=== PATIENT | female | born 1990 | race Caucasian/White ===

== ENCOUNTER 2020-10-28 19:53 | Inpatient (IN) | payer OTHER, SELFPAY ==
[2020-10-28] VITALS (16 sets, daily range): BP systolic 100–131; BP diastolic 54–73; PULSE 65–90; TEMP 36.6
--- OUTSIDE RECORDS SUMMARY | 2020-10-28 19:59 | XMS_ITS | Encounter Summary ---
:1990 Author Reason for Visit return OB visit Assessment and Plan None recorded.Discussion Note: None recorded.Patient educational handouts: No information available. Plan of Care Reminders Provider Appointments None ? ? recorded. Lab None ? ? recorded. Referral None ? ? recorded. Procedures None ? ? recorded. Surgeries None ? ? recorded. Imaging None ? ? recorded. Medications Name Start Date ? ? 28 mg iron-800 mcg tablet ? TAKE ONE TABLET BY MOUTH EVERY DAY 28 mg-800 mcg tablet ? Take 1 tablet every day by oral route. Notes: PNV Medications Administered None recorded. Vitals Height Weight Blood Pressure 5 ft 3 in 211 lbs 130/80 mm[Hg] Results Lab Results None recorded. Allergies Code Code System Name Reaction Severity Onset NKDA ? ? ? Problems Name Status Onset Date Source ? Active 04/05/2020 History Suppression of Menstruation Active ? Hist ory Dysuria Active ? History Procedures Date Name Performed by ?
--- OUTSIDE RECORDS SUMMARY | 2020-10-28 19:59 | XMS_ITS | Encounter Summary ---
:1990 Author Reason for Visit return OB visit Assessment and Plan 1. Routine care Discussion Note: None recorded.Patient educational handouts: No information [...] Weight Blood Pressure 5 ft 3 in 213 lbs 124/76 mm[Hg] Results Lab Results None recorded. Allergies Code Code System Name Reaction Severity Onset NKDA ? ? ? Problems Name Status Onset Date Source ? Active 04/05/2020 History Suppression of Menstruation Active ? Hist ory Dysuria Active ? History Procedures None recorded. Vaccine List Notes: omar
--- OUTSIDE RECORDS SUMMARY | 2020-10-28 19:59 | XMS_ITS | Encounter Summary ---
:1990 Author Reason for Visit return OB visit Assessment and Plan 1. Routine care ? induction of labor (PROC) Discussion Note: None recorded.Patient educational handouts: No information available. Plan of Care Reminders Provider Appointments None ? ? recorded. Lab None ? ? recorded. Referral None ? ? recorded. Procedures Induction of [facility] Labor (PROC) 10/28/2020 (Admitting) Surgeries None ? ? recorded. Imaging None ? ? recorded. Medications Name Start Date ? ? 28 mg iron-800 mcg tablet ? TAKE ONE TABLET BY MOUTH EVERY DAY 28 mg-800 mcg tablet ? Take 1 tablet every day by oral route. Notes: PNV Medications Administered None recorded. Vitals Height Weight Blood Pressure 5 ft 3 in 212 lbs 122/76 mm[Hg] Results Lab Results None recorded. Allergies Code Code System Name Reaction Severity Onset NKDA ? ? ? Problems Name Status Onset Date Source ? Active 04/05/2020 History Suppression of Menstruation Active ? Hist ory
--- OUTSIDE RECORDS SUMMARY | 2020-10-28 19:59 | XMS_ITS ---
:1990 Author Care Team Providers Name Role Phone [facility] Primary Care Provider Unavailable Allergies Code Code System Name Reaction Severity Status Onset NKDA ? Medications Name Status Start Date Stop Date ? ? Boostrix Tdap 2.5 Lf unit-8 mcg-5 Lf/0.5 mL intramuscular syring e Completed ? 01/02/2017 ADM 0.5ML IM UTD Estarylla 0.25 mg-35 mcg tablet Completed ? 04/05/2020 hydrocodone 5 mg-acetaminophen 325 mg Completed ? 01/02/2017 tablet ID NOW COVID-19 Test Kit Completed ? 021 TEST DIRECTED nitrofurantoin monohydrate/macrocrystals 100 mg capsule Unknown ? Not available TAKE 1 CAPSULE(S) TWICE A DAY BY ORAL ROUTE FOR 5 DAYS. oseltamivir 75 mg capsule Completed ? 2016 TAKE ONE CAPSULE BY MOUTH TWICE A DAY FOR 5 DAYS Prenatabs FA 29 mg-1 mg tablet Completed ? 0 10/30/2016 Prenatabs Rx 29 mg iron-1 mg tablet Completed ? 01/02/2017 Take 1 tablet every day by oral route. 28 mg iron-800 mcg tablet Active ? Not available TAKE ONE TABLET BY MOUTH EVERY DAY 28 mg-800 mcg tablet Active ? No t available Take 1 tablet every day by oral route. Se-Pricilla 19 (with docusate) 29 mg Completed ? 10/30/2016 iron-1 mg-25 mg tablet Notes: PNV Problems Name Status Onset Date Source ? Active 04/05/2020 History Suppression of Menstruation Active ? Hist ory Dysuria Active ?
--- OUTSIDE RECORDS SUMMARY | 2020-10-28 20:00 | XMS_ITS ---
:1990 Author Care Team Providers Name Role Phone [facility] Primary Care Provider Unavailable Allergies Code [...] 01/02/2017 tablet ID NOW COVID-19 Test Kit Active ? Not saranya ilable TEST DIRECTED nitrofurantoin monohydrate/macrocrystals 100 mg capsule [...] iron-800 mcg tablet Active ? Not available TK 1 T PO QD 28 mg-800 mcg tablet Active ? No t available Take 1 tablet every day by oral route. Se-Pricilla 19 (with docusate) 29 mg Completed ? 10/30/2016 iron-1 mg-25 mg tablet Notes: PNV Problems Name Status Onset Date Source ? Active 04/05/2020 ? Suppression of Menstruation Active ? Enco unter Dysuria Active ? Encounter
--- OUTSIDE RECORDS SUMMARY | 2020-10-28 20:00 | XMS_ITS | Encounter Summary ---
[...] recorded. Medications Name Start Date ? ? ID NOW COVID-19 Test Kit ? TEST DIRECTED 28 mg iron-800 mcg tablet ? TK 1 T PO QD 28 mg-800 mcg tablet ? Take 1 tablet every day by oral route. Notes: PNV Medications Administered None recorded. Vitals Height Weight Blood Pressure 5 ft 3 in 198 lbs 124/76 mm[Hg] Results Lab Results None recorded. Allergies Code Code System Name Reaction Severity Onset NKDA ? ? ? Problems Name Status Onset Date Source ? Active 04/05/2020 ? Suppression of Menstruation Active ? Enco unter Dysuria Active ? Encounter Procedure
--- OUTSIDE RECORDS SUMMARY | 2020-10-28 20:00 | XMS_ITS | Encounter Summary ---
:1990 Author Reason for Visit OB Ultrasound Assessment and Plan None recorded.Discussion Note: None [...] Notes: PNV Medications Administered None recorded. Vitals None recorded. Results Lab Results None recorded. Allergies Code Code System Name Reaction Severity Onset NKDA ? ? ? Problems Name Status Onset Date Source ? Active 04/05/2020 History Suppression of Menstruation Active ? Hist ory Dysuria Active ? History Procedures Date Name Performed by ? 09/15/2020 US, Obstetric, 2Nd or 3Rd Trimester [facility] (Imaging)
--- OUTSIDE RECORDS SUMMARY | 2020-10-28 20:00 | XMS_ITS | Encounter Summary ---
:1990 Author Reason for Visit return OB visit Assessment and Plan 1. Routine care 2. Malpresentation of fetus ? US, obstetric, 2nd or 3rd trimester - growth/check position Discussion Note: None recorded.Patient educational handouts: No information available. Plan of Care Reminders Provider Appointments None ? ? recorded. Lab None ? ? recorded. Referral None ? ? recorded. Procedures None ? ? recorded. Surgeries None ? ? recorded. Imaging US, [facility], 2Nd or 3Rd 09/15/2020 [facility] Tr[facility] (Imaging) Medications Name Start Date ? ? 28 mg iron-800 mcg tablet ? TAKE ONE TABLET BY MOUTH EVERY DAY 28 mg-800 mcg tablet ? Take 1 tablet every day by oral route. Notes: PNV Medications Administered None recorded. Vitals Height Weight BMI Blood Pressure 5 ft 3 in 201.5 lbs 35.7 kg/m2 108/70 mm[Hg] Results Lab Results None recorded. Allergies Code Code System Name Reaction Severity Onset NKDA ? ? ? Problems Name Status Onset Date Source ?
--- OUTSIDE RECORDS SUMMARY | 2020-10-28 20:00 | XMS_ITS | Encounter Summary ---
:1990 Author Reason for Visit return OB visit Assessment and Plan 1. Routine care ? 28 mg iron-800 mc g tablet Discussion Note: None recorded.Patient educational handouts: No [...] Weight Blood Pressure 5 ft 3 in 204 lbs 110/68 mm[Hg] Results Lab Results None recorded. Allergies Code Code System Name Reaction Severity Onset NKDA ? ? ? Problems Name Status Onset Date Source ? Active 04/05/2020 History Suppression of Menstruation Active ? Hist ory Dysuria Active ? History Procedures
--- OUTSIDE RECORDS SUMMARY | 2020-10-28 20:00 | XMS_ITS | Encounter Summary ---
:1990 Author Reason for Visit return OB visit Assessment and Plan 1. Routine care ? streptococcus group B, cul ture, unspecified specimen Discussion Note: None recorded.Patient educational handouts: No information available. Plan of Care Reminders Provider Appointments None recorded. ? ? Lab Streptococcus Gat [facility] Group B, Culture, 10/05/2020 Hospital (Lab) Unspecified Specimen Referral None recorded. ? ? Procedures None recorded. ? ? Surgeries None recorded. ? ? Imaging None recorded. ? ? Medications Name Start Date ? ? 28 mg iron-800 mcg tablet ? TAKE ONE TABLET BY MOUTH EVERY DAY 28 mg-800 mcg tablet ? Take 1 tablet every day by oral route. Notes: PNV Medications Administered None recorded. Vitals Height Weight Blood Pressure 5 ft 3 in 206 lbs 118/72 mm[Hg] Results Lab Results Date Name Specimen Result Interpretation Description Value Range Status Address ? 10/05/2020 Streptococcus ? Strep Gp negative negative Final [facility]: Group B, B [facility] [id number] Culture, Anthony givens, Unspecified Yohan
--- NOTE | 2020-10-28 20:29 | LDADM ---
This patient, Ana Maria Chappell, was admitted to Labor/Delivery/Recovery 105 on 10/28/20 at 19:53. Plans for labor, pain management and were discussed with patient. Patient/family oriented to hospital policies and general routines including ID bracelet, bed and alarms, visiting hours, pain management, procedures, bathroom and other care routines, personal items, smoking policy, room service/diet and guest tray routines, security routines, and visiting hours. Patient/Family are encouraged to report perceived risks to care and to ask questions if they do not understand what they are told or what they should do. See OBIX for further documentation.
[2020-10-28] MEDS: LACTATED RINGERS 1,000 ML 125 ML IV CONT (20:52)
[2020-10-28 21:00] LABS: Basophils Percent Auto 0.2 % (0.2-1.2); Eosinophils Absolute Auto 0.2 K/mm3 (0-0.3); Eosinophils Percent Auto 1.1 % (0-4.4); Hematocrit 35.3 % (37.0-47.0); Hemoglobin 12.2 g/dL (12.0-15.0); Immature Granulocyte Percent A 0.8 % (0-0.5); Lymphocytes Absolute Auto 1.61 K/mm3 (0.9-3.2); Lymphocytes Percent Auto 12.1 % (18.3-44.2); Mean Corpuscular HGB Conc 34.6 g/dl (32-36); Mean Corpuscular Hemoglobin 32.9 pg (26-34); Mean Corpuscular Volume 95.1 fl (80-100); Mean Platelet Volume 11.5 fl (7.4-10.4); Monocytes Absolute Auto 1.1 K/mm3 (0.1-0.6); Monocytes Percent Auto 8.3 % (2.6-8.5); Neutrophils Absolute Auto 10.3 K/mm3 (1.3-6.7); Neutrophils Percent Auto 77.5 % (45.5-73.1); Platelet Count Result 146 k/mm3 (150-375); Red Blood Count 3.71 M/mm3 (4.2-5.4); White Blood Count 13.3 K/mm3 (4.5-10.0)
[2020-10-28 21:50] LABS: HIV 1/2 Ab P24 Ag Result Negative (Negative)
[2020-10-28] MEDS: OXYTOCIN 30 UNITS/NS 500 ML 30 UNITS/500 ML BAG IV CONT (21:54)
[2020-10-29] VITALS (186 sets, daily range): BP systolic 57–139; BP diastolic 32–121; PULSE 25–159; RESP 18; TEMP 36.1–37.1; O2SAT 83–100
--- NOTE | 2020-10-29 07:08 | WPDANESEPP ---
Anes - Eval Pre Procedure Procedure: labor epidural Date/Time: 10/29/20 07:08 Preop Diagnosis: labor pain Pre Op Diagnosis: IOL Patient Data Age: 30 Gender: F Height: Weight: Last Vital Signs Temp 36.5 C 10/29/20 00:11 Pulse 72 10/29/20 07:01 BP 115/74 10/29/20 07:01 Pulse Ox 88 L 10/29/20 07:07 Allergies Allergy/AdvReac Type Severity Reaction Status Date / Time No Known Allergies Allergy Verified 10/15/20 15:38 Home Medications Medication Instructions Recorded Confirmed Type prenat.vits,fran,ejf-mdnu-fsuvv 1 tablet PO HS 10/15/20 10/15/20 History [ #2] Laboratory Tests 10/28/20 10/28/20 10/28/20 20:53 20:53 20:53 WBC 13.3 K/mm3 H K/mm3 (4.5-10.0) RBC 3.71 M/mm3 L M/mm3 (4.2-5.4) Hgb 12.2 g/dL g/dL (12.0-15.0) Hct 35.3 % L % (37.0-47.0) MCV 95.1 fl fl (80-100) MCH 32.9 pg pg (26-34) MCHC 34.6 g/dl g/dl (32-36) RDW 13.0 % % (11.5-14.5) Plt Count 146 k/mm3 L k/mm3 (150-375) MPV 11.5 fl H fl (7.4-10.4) Immature Gran % (Auto) 0.8 % H % (0-0.5) Neut % (Auto) 77.5 % H % (45.5-73.1) Lymph % (Auto) 12.1 % L % (18.3-44.2) Edmunds % (Auto) 8.3 % % (2.6-8.5) Eos % (Auto) 1.1 % % (0-4.4) Baso % (Auto) 0.2 % % (0.2-1.2) Lymph # (Auto) 1.61 K/mm3 K/mm3 (0.9-3.2) Edmunds # (Auto) 1.1 K/mm3 H K/mm3 (0.1-0.6) Eos # (Auto) 0.2 K/mm3 K/mm3 (0-0.3) Baso # (Auto) 0.0 K/mm3 K/mm3 (0.0-0.1) Abs Immat Gran (auto) 0.10 K/mm3 H K/mm3 (0.00-0.031) Absolute Neuts (auto) 10.3 K/mm3 H K/mm3 (1.3-6.7) Absolute Nucleated RBC 0.0 K/mm3 K/mm3 (0.0-0.012) Nucleated RBC % 0.0 % % (0.0-0.2) RPR Pending HIV 1&2 Ab/P24 Ag 4thGn Negative (Negative) Blood Type Antibody Screen 10/28/20 20:53 WBC RBC Hgb Hct MCV MCH MCHC RDW Plt Count MPV Immature Gran % (Auto) Neut % (Auto) Lymph % (Auto) Edmunds % (Auto) Eos % (Auto) Baso % (Auto) Lymph # (Auto) Edmunds # (Auto) Eos # (Auto) Baso # (Auto) Abs Immat Gran (auto) Absolute Neuts (auto) Absolute Nucleated RBC Nucleated RBC % RPR HIV 1&2 Ab/P24 Ag 4thGn Blood Type A Positive Antibody Screen Negative Patient hx anesthesia problems: none Family hx anesthesia problems: none [facility] Family History Family History (Updated 10/15/20 @ 15:40 by Lima Goddard RN) Father Hypertension Mother Crohn disease Grandparent Diabetes mellitus Social History Social History Smoking status: Never smoker Second hand tobacco smoke exposure: No Substance use: never Spiritual care concerns: No Exam Day of Procedure 10/29/20 07:08
[2020-10-29] MEDS: LACTATED RINGERS 1,000 ML 125 ML IV CONT ×2 (07:30→07:57)
[2020-10-29] MEDS: fentaNYL CITRATE INJ (*CRX) 100 MCG/2 ML VIAL 50 MCG IV PUSH (09:35)
--- NOTE | 2020-10-29 13:29 | WPDHPUPDATE1 ---
History and Physical Update Update Date/Time: 10/29/20 13:29 History and Physical has been reviewed, including an updated exam of the patient. There are NO changes in the patient's condition. Risks, benefits, and alternatives have been discussed and questions answered. Patient agrees to proceed with procedure.
--- NOTE | 2020-10-29 13:29 | WPDOBADMIT ---
Obstetrics - Admit Note Admission Note: record reviewed. No pertinent additions to the history and/or any subsequent changes in the physical findings that are not consistent with the expected course of the were found. Additions to the history and/or subsequent changes in the physical findings follow. None.
--- NOTE | 2020-10-29 13:29 | PM.OBPRVD ---
OB - Delivery Note Procedure Route of delivery: Episiotomy description: None Laceration Description: Vaginal - 1st Degree Delivery repair: chromic Specimen: No Quantitative Blood Loss (ml): 200 Anesthesia type: Epidural Disposition: floor Narrative: Patient prepped and draped in usual manner for this procedure. Maternal expulsive efforts readily delivered vertex over intact perineum with nuchal cord noted. Rest of baby was delivered without difficulty cord was clamped and cut and the placenta delivered spontaneously. 1cm vaginal laceration was noted which was bleeding and therefore [id number] suture of 2 0 chromic was placed to render this hemostatic. Uterus was well contracted and there was minimal bleeding from the uterus. At this point seizure was considered terminated patient are procedure well immediate postop condition mother baby were both excellent. Stacy Baby Weeks of gestation at delivery: 39 gender: Female Weight (pounds): 7 Weight (ounces): 1 score one minute: 9 score five minutes: 9
[2020-10-29] MEDS: OXYTOCIN 30 UNITS/NS 500 ML 30 UNITS/500 ML BAG 125 UNITS IV CONT (13:35)
[2020-10-29 14:22] LABS: Rapid Plasma Reagin Non-Reactive (NonReactive)
--- NOTE | 2020-10-29 15:55 | PC.NURSE ---
Patient transferred to post room #287 per wheelchair from labor and delivery. Support person present. Oriented to unit, room, information board, rooming in, admission packet and security measures. Patient verbalizes understanding.
[2020-10-29] MEDS: IBUPROFEN 600 MG TABLET PO (19:35)
[2020-10-30 00:10] VITALS: BP 116/58; PULSE 76; RESP 16; TEMP 36.7; O2SAT 100
[2020-10-30] MEDS: IBUPROFEN 600 MG TABLET PO ×3 (00:35→15:15)
[2020-10-30 04:00] VITALS: BP 96/56; PULSE 63; RESP 18; TEMP 36.2; O2SAT 100
[2020-10-30 06:09] LABS: Hematocrit 33.4 % (37.0-47.0); Hemoglobin 11.4 g/dL (12.0-15.0)
--- NOTE | 2020-10-30 06:47 | PM.OBDSVD ---
DS: Admitting Diagnosis Admitting Diagnosis Admitting Diagnosis: OB - DS: Summary OB Procedures : None OB Procedures Intrapartum: Spontaneous Vag Delivery OB Procedures: : None Time Spent with Patient Time attestation: Total time spent providing and/or coordinating discharge services: DS: Data Data Completed and Pending Labs on day of discharge: Labs from last 24 hours 10/30/20 10/28/20 04:04 20:53 Hgb 11.4 L Hct 33.4 L RPR Non-reactive Discharge Plan Discharge Discharging Clinician: Jerrod Kraft Anticipated Discharge Date/Time: 10/30/20 12:48 Patient Disposition: Home, Self-Care Activity: as tolerated Diet: as tolerated Patient Instructions: Antibiotic Form Stand Alone Forms: General Discharge Information Follow-up/Referrals: Jerrod Kraft MD [Physician] - 3 Weeks Discharge Medications: New ibuprofen 600 mg Tablet 600 mg PO Q6H PRN (Reason: Cramping) Qty: 30 RF: 0 Continued #2 Tablet 1 tablet PO HS RF: 0 Date of admission: 10/28/20 19:53 Primary Care Provider: PHYSICIAN,PELLETIZER TENDER Admitting Provider: Jerrod Kraft Attending physician on admission: Jerrod Kraft Condition: Stable
[2020-10-30 08:00] VITALS: BP 107/55; PULSE 63; PULSE 72; RESP 18; TEMP 36.3; O2SAT 100
[2020-10-30] MEDS: DOCUSATE SODIUM 100 MG CAPSULE PO ×2 (08:21→15:15)
[2020-10-30] MEDS: BENZOCAINE 20% AER SPR (*SP) 56 GM CAN 1 SPRAY TOPICAL (08:21)
[2020-10-30] MEDS: WITCH HAZEL 40 PADS 1 PAD TOPICAL (08:21)
[2020-10-30] MEDS: MULTIVIT/MIN/PREN/FOL AC/IRON TABLET 1 TAB PO (08:22)
--- NOTE | 2020-10-30 10:35 | WPDANLDPN2 ---
Anes-Prog Note L&D Date/Time: 10/30/20 10:35 Comfortable throughout: labor and delivery Neuraxial method: epidural Epidural/Spinal procedure site: clean & non-tender Neuro status: Neuro function grossly intact. Cardiovascular status: normal Respiratory status: normal Airway patency: baseline Mental status: baseline Post-Op hydration status: normal Vital Signs: Last Vital Signs Temp 36.3 C L 10/30/20 08:00 Pulse 72 10/30/20 08:00 Resp 18 10/30/20 08:00 BP 107/55 L 10/30/20 08:00 Pulse Ox 100 10/30/20 08:00 Pain score (VAS): 0 I/O: Intake & Output 10/29/20 10/30/20 10/30/20 23:59 07:59 15:59 Intake Total 500 Balance 500 Post-procedural complaints: none Patient feedback: Patient satisfied with anesthetic care.
[2020-10-30 13:00] VITALS: BP 114/60; PULSE 80; RESP 20; TEMP 36.8
[2020-10-30] MEDS: MEASLES,MUMPS,RUBELLA VACCINE 0.5 ML VIAL SUB-Q (15:19)
--- NOTE | 2020-10-30 16:04 | PC.NURSE ---
Self care and infant care discharge instructions given including follow up visit date and time. Pt. verbalized understanding. No questions or concerns voiced. Very pleasant and cooperative. at bedside.
[2020-11-01 10:17] VITALS: BP 136/64; PULSE 77; RESP 20; TEMP 36.9; O2SAT 100
== END 2020-10-30 16:54 | disposition home or self-care (01) | DRG 807 ==
LOC: ANHLDR 10-29 14:31 → ANHOB2 10-29 16:09
PROVIDERS: Admitting Provider Obstetrics & Gynecology; Visit Provider Obstetrics & Gynecology
DX: O69.81X0 Labor and delivery complicated by cord around neck, without compression, not applicable or unspecified (principal); Z37.0 Single live birth; Z3A.39 39 weeks gestation of pregnancy; O36.8330 Maternal care for abnormalities of the fetal heart rate or rhythm, third trimester, not applicable or unspecified; O70.0 First degree perineal laceration during delivery
CPT/HCPCS: 36415; 85014; 85018; 85025; 86592; 86703; 86850; 86900; 86901; 90710; A9270; G0432; J2590; J3010; J7120

== ENCOUNTER 2021-11-17 14:54 | Emergency (ER) | payer OTHER, SELFPAY ==
[2021-11-17 14:58] VITALS: BP 114/66; PULSE 95; RESP 16; TEMP 36.7; O2SAT 99
--- NOTE | 2021-11-17 15:27 | ED.EYEPROB ---
HPI - Eye Problem General Chief complaint: Eye Problems Stated complaint: Eye Problem Time Seen by Provider: 11/17/21 15:28 Source: patient Mode of arrival: ambulatory Limitations: no limitations History of Present Illness HPI Narrative: 31-year-old female presented for complaint of left eye irritation and redness, noticed today. She states she woke this morning with crusted drainage. Feels mild gritty sensation in the eye. Denies vision changes. She endorses allergies. Denies sick contacts but states she has 2 small children. chief complaint: eye pain Related Data Home Medications Medication Instructions Recorded Confirmed norgestimate-ethinyl estradiol See Rx Instructions .ROUTE .COMPLEX 11/17/21 11/17/21 [Estarylla] Allergies Allergy/AdvReac Type Severity Reaction Status Date / Time No Known Allergies Allergy Verified 11/17/21 15:14 Review of Systems Review of Systems: All systems reviewed & are unremarkable except as noted in HPI and below PMFSH Family History Family History Father Hypertension Mother Crohn disease Grandparent Diabetes mellitus Social History Social History Smoking status: Never smoker Second hand tobacco smoke exposure: No Substance use: never Spiritual care concerns: No Comments At time of signature, I have reviewed and agree with nursing past medical, surgical, social and family history unless otherwise noted. Please see nursing chart for further information. There is no relevant family history pertinent to the presenting complaint Exam Narrative: GENERAL: Well-appearing HEAD: Normocephalic, atraumatic. EYES: Left conjunctival injection, mild clear drainage PERRLA EOMI. Lid eversion showed no foreign body ENT: Mucous membranes pink and moist. No rhinorrhea. TMs normal bilaterally. Throat normal. Uvula midline. NECK: Normal AROM. Supple. No lymphadenopathy. CHEST: No respiratory distress. Clear to auscultation. HEART: Regular rate and rhythm. No murmur appreciated. Normal peripheral pulses. ABDOMEN: Soft, nontender, nondistended MUSCULOSKELETAL: No bony tenderness. EXTREMITIES: Normal range of motion. SKIN: Warm, dry, no rash. Normal skin turgor. NEURO: No focal deficits. Alert and oriented x3. Steady gait PSYCH: Normal affect. Course Course Emergency Course: Patient is aware of diagnosis, understands and agrees to treatment plan. Anticipatory guidance given. Patient agrees to follow-up as directed and is aware of reasons to seek care at the emergency department. Portions of this record may have been created with voice recognition software Level of Care: Express Care Visit Vital Signs Vital signs: Vital Signs Temperature 98.1 F 11/17/21 14:58 Pulse Rate 95 11/17/21 14:58 Respiratory Rate 16 11/17/21 14:58 Blood Pressure 114/66 11/17/21 14:58 Pulse Oximetry 99 11/17/21 14:58 Temperature 98.1 F 11/17/21 14:58 Pulse Rate 95 11/17/21 14:58 Respiratory Rate 16 11/17/21 14:58 Blood Pressure 114/66 11/17/21 14:58 Pulse Oximetry 99 11/17/21 14:58 MDM - Eye Problem Differential Diagnosis Differential diagnosis: Likely corneal abrasion, conjunctivitis, acute iritis and other Discharge Plan Discharge Clinical Impression: Bacterial conjunctivitis Patient Disposition: Home, Self-Care Condition: Stable Instructions: Antibiotic Form, Conjunctivitis (ED) Additional Instructions: Avoid touching or rubbing your eye. Use over the counter lubricating eye drops as needed for irritation Use a warm or cool washcloth on your eye for comfort Use eyedrops as directed - you are contagious for 24 hours after starting the antibiotic Practice good handwashing and hygiene to prevent spread of infection You may take Tylenol or ibuprofen for pain Follow-up with PCP or contact clerk if condi
== END 2021-11-17 15:34 | disposition home or self-care (01) ==
PROVIDERS: Emergency Provider Nurse Practitioner Family
DX: H10.9 Unspecified conjunctivitis (principal); B96.89 Other specified bacterial agents as the cause of diseases classified elsewhere
CPT/HCPCS: 99213; G0463